=== PATIENT | male | born 1995 | race Caucasian/White ===

== ENCOUNTER 2019-04-23 21:13 | Emergency (ER) | payer BC, OTHER ==
[2019-04-23 21:16] VITALS: BMI 26.8
--- NOTE | 2019-04-23 22:10 | PDOC ---
History of Present Illness - General Chief Complaint: Pain Stated Complaint: SICK Time Seen by Provider: 04/23/19 21:38 History Source: Patient Exam Limitations: No Limitations - History of Present Illness Initial Comments: 04/23/19 22:04 HISTORY OF PRESENT ILLNESS: 24-year-old male denies medical history of presents to the emergency department for evaluation of bilateral testicular pain for the past 4 days. Patient reports the pain is a dull ache with rating 4/10. Reports the pain was gradual onset and is Akbar with a maximum intensity of 5/ 10. He denies any sexual activity in 5 years, dysuria, hematuria, hematospermia or testicular trauma. No recent travel or sick contacts. PAST MEDICAL HISTORY: Denies past medical history SURGICAL HISTORY: Denies ALLERGIES: No known drug allergies REVIEW OF SYSTEMS General/Constitutional: Denies fever or chills. Denies weakness, weight change. HEENT: Denies change in vision. Denies ear pain or discharge. Denies sore throat. Cardiovascular: Denies chest pain or shortness of breath. Respiratory: Denies cough, wheezing, or hemoptysis. Gastrointestinal: Denies nausea, vomiting, diarrhea or constipation. Denies rectal bleeding. Genitourinary: See HPI Musculoskeletal: Denies joint or muscle swelling or pain. Denies neck or back pain. Skin and breasts: Denies rash or easy bruising. Neurologic: Denies headache, vertigo, loss of consciousness, or loss of sensation. Psychiatric: Denies depression or anxiety. Endocrine: Denies increased thirst. Denies abnormal weight change. Hematologic/Lymphatic: Denies anemia, easy bleeding, or history of blood clots. Allergic/Immunologic: Denies hives or skin allergy. Denies latex allergy. PHYSICAL EXAM General Appearance: Well-appearing, appropriately dressed. No apparent distress , no intoxication. Respiratory/Chest: Lungs CTAB. No shortness of breath, chest tenderness, respiratory distress, accessory muscle use. No crackles, rales, rhonchi, stridor , wheezing, dullness Cardiovascular: RRR. S1, S2. No JVD, murmur, bradycardia, tachycardia. Gastrointestinal/Abdominal: Normal bowel sounds. Abdomen soft, non-distended. No tenderness or rebound tenderness. No organomegaly, pulsatile mass, guarding, hernia, hepatomegaly, splenomegaly. Genitals: Circumcised penis without any lesions present to the glans or shaft. Testicular exam is within normal limits. No palpable masses present. Cremasteric reflex present bilaterally. Spermatic cords present. Lymphatic: No inguinal adenopathy, tenderness. Past History - Past Medical History Allergies/Adverse Reactions: Allergies Allergy/AdvReac Type Severity Reaction Status Date / Time No Known Allergies Allergy Verified 04/23/19 21:17 Home Medications: Ambulatory Orders NK [No Known Home Medication] 09/07/17 COPD: No - Psycho Social/Smoking Cessation Hx Smoking History: Never smoked Have you smoked in the past 12 months: No Hx Alcohol Use: No Drug/Substance Use Hx: No *Physical Exam - Vital Signs Last Vital Signs Temp Pulse Resp BP Pulse Ox 97.4 F L 84 18 122/80 98 04/23/19 21:14 04/23/19 21:14 04/23/19 21:14 04/23/19 21:14 04/23/19 21:14 ED Treatment Course - RADIOLOGY Radiology Studies Ordered: Category Date Time Status SCROTUM AND CONTENTS US [US] Stat Ultrasound 04/23/19 21:43 Ordered Medical Decision Making - Medical Decision Making 04/23/19 22:09 A/P: 24-year-old male with bilateral testicular pain for 4 days Differential diagnosis includes but is not limited to testicular torsion, epididymitis, STI, neoplasm Urinalysis, urine culture, urine GC Scrotal ultrasound Reassess 04/24/19 00:28 Scrotal ultrasound is read by imaging on-call: Right testicle appears normal and demonstrates normal flow. Normal right epididymis. No hydrocele or varicocele. Left testicle appears normal and demonstrates normal flow. Normal left epididymis. No hydrocele or varicocele. Testicular duplex: There is normal arterial and venous flow to both testicles. Impression: Normal exam This patient has been abstinent for greater than 5 years I will defer testing for GC at this time. Urinalysis is unremarkable. Discharge home with urologic follow-up Discharge - Discharge Information Problems reviewed: Yes Clinical Impression/Diagnosis: Testicular pain Condition: Stable Disposition: HOME - Admission No - Follow up/Referral Referrals: Janak Bosch MD., MD [Staff Physician] - - Patient Discharge Instructions Additional Instructions: Your ultrasound today was unremarkable. Your gonorrhea and Chlamydia testing will take 3 days before we get results. We will call you if the results are positive and you need to be treated. You will not receive a phone call if the testing is negative. You been given a referral for a urologist. Contact the urologist for continued evaluation of your pain. Return to the emergency department immediately for new or worsening symptoms. Thank you very much for choosing us to provide your emergent health care needs. - Post Discharge Activity
[2019-04-23 22:59] LABS: URINE APPEARANCE CLEAR; URINE BILIRUBIN NEGATIVE (NEGATIVE); URINE COLOR YELLOW; URINE GLUCOSE (UA) NEGATIVE (NEGATIVE); URINE KETONE NEGATIVE (NEGATIVE); URINE LEUK ESTERASE NEGATIVE (NEGATIVE); URINE NITRITE NEGATIVE (NEGATIVE); URINE PROTEIN NEGATIVE (NEGATIVE); URINE UROBILINOGEN 0.2 mg/dL (0.2-1.0)
[2019-04-24 01:00] VITALS: BP 128/70; PULSE 65; TEMP 98.2
== END 2019-04-24 00:45 | disposition home or self-care (01) ==
LOC: JER 21:13
DX: N50.812 Left testicular pain (principal); N50.811 Right testicular pain
CPT/HCPCS: 36415; 76870-TC; 81003; 87086; 87491; 87591; 99282-25

== ENCOUNTER 2021-01-06 01:46 | Emergency (ER) | payer BC, OTHER ==
[2021-01-06] MEDS ORDERED: DIPHTH,PERTUSS(ACELL),TET 0.5 ML DISP.SYRIN IM ONE ×2 (02:40→02:56)
[2021-01-06 03:47] VITALS: BP 123/85; PULSE 78; TEMP 98.4; BMI 26.6
== END 2021-01-06 03:57 | disposition home or self-care (01) ==
LOC: JER 01:46
PROC: 0JQ10ZZ Repair Face Subcutaneous Tissue and Fascia, Open Approach (ICD-10-PCS; principal; 2021-01-06)
PROC: 3E0234Z Introduction of Serum, Toxoid and Vaccine into Muscle, Percutaneous Approach (ICD-10-PCS; 2021-01-06)
DX: S01.511A Laceration without foreign body of lip, initial encounter (principal)
CPT/HCPCS: 12001; 90471; 90715; 99284-25

== ENCOUNTER 2021-01-11 12:10 | Emergency (ER) | payer SELFPAY ==
[2021-01-11 12:21] VITALS: BP 134/68; PULSE 70; TEMP 98.7; BMI 38.0
== END 2021-01-11 13:56 | disposition home or self-care (01) ==
LOC: JERFT 12:10
DX: Z48.02 Encounter for removal of sutures (principal)
CPT/HCPCS: 99281-25

== ENCOUNTER 2022-01-12 03:59 | Day surgery (SDC) | payer OTHER ==
[2022-01-09 16:45] VITALS: BMI 27.8
[~2022-01-12 03:59] MED LIST: EPINEPHrine/PF 1 MG/1 ML (1:1,000) AMPULE SQ ONE
[2022-01-12] MEDS ORDERED: SODIUM CHLORIDE 0.9% P/F 10 ML VIAL IJ ONE (11:35)
[2022-01-12] MEDS ORDERED: PROPOFOL 40 ML ONE (12:20)
[2022-01-12] MEDS ORDERED: SUCCINYLCHOLINE CHLORIDE 200 MG/10 ML SYRINGE ONE ×2 (12:20→14:30)
[2022-01-12] MEDS ORDERED: ROCURONIUM BROMIDE 50 MG/5 ML SYRINGE ONE ×2 (12:20→13:36)
[2022-01-12] MEDS ORDERED: MIDAZOLAM HCL 2 MG/2 ML SINGLE DOSE VIAL ONE (12:21)
[2022-01-12] MEDS ORDERED: HYDROmorphone HCl 2 MG/ML VIAL ONE (12:36)
[2022-01-12] MEDS ORDERED: PROPOFOL 20 ML ONE ×4 (12:49→14:33)
[2022-01-12] MEDS ORDERED: ceFAZolin SODIUM 1 GM VIAL IVPB ONE (12:50)
[2022-01-12] MEDS ORDERED: OXYMETAZOLINE 0.05% NASAL SOLUTION 15 ML BOTTLE NS ONE (12:51)
[2022-01-12] MEDS ORDERED: LIDOCAINE 1%/EPI 1:100000 (20 ML MULTI DOSE VIAL) ONE (13:31)
[2022-01-12] MEDS ORDERED: LIDOCAINE 1%/EPI 1:100000 (50 ML MULTI DOSE VIAL) INF ONE (13:33)
[2022-01-12] MEDS ORDERED: NEOSTIGMINE METHYLSULFATE 0.5 MG/ML - 10 ML MDV ONE (14:28)
[2022-01-12] MEDS ORDERED: ONDANSETRON 4 MG/2 ML VIAL IVPUSH PRN (15:09)
[2022-01-12] MEDS ORDERED: LACTATED RINGERS SOLUTION 1,000 ML IV SCH (15:15)
[2022-01-12 16:52] VITALS: RESP 18
[2022-01-12 17:45] VITALS: BP 130/64; PULSE 67; TEMP 97.7
== END 2022-01-12 18:55 | disposition home or self-care (01) ==
LOC: JASU-SURG 03:59
PROVIDERS: ATTEND Otolaryngology
PROC: 09BM8ZZ Excision of Nasal Septum, Via Natural or Artificial Opening Endoscopic (ICD-10-PCS; 2022-01-12)
PROC: 09BV8ZZ Excision of Left Ethmoid Sinus, Via Natural or Artificial Opening Endoscopic (ICD-10-PCS; principal; 2022-01-12 12:00)
PROC: 09BU8ZZ Excision of Right Ethmoid Sinus, Via Natural or Artificial Opening Endoscopic (ICD-10-PCS; 2022-01-12 12:00)
DX: J32.9 Chronic sinusitis, unspecified (principal); J34.2 Deviated nasal septum; R09.81 Nasal congestion; J34.3 Hypertrophy of nasal turbinates
CPT/HCPCS: 88302-TC; 88304-TC; 88311-TC; 94760